=== PATIENT | male | born 1995 | race Caucasian/White ===

== ENCOUNTER 2018-01-07 05:35 | Day surgery (SDC) | payer OTHER ==
[~2018-01-07 05:35] MED LIST: CEFAZOLIN 2 GM/D5W RTU 2 GM/50 ML RTUPB IV PRN
[2018-01-07] MEDS ORDERED: CEFAZOLIN 2 GM/D5W RTU 2 GM/50 ML RTUPB IV ONE (05:40)
[2018-01-07 05:59] LABS: APPEARANCE,URINE CLEAR; BILIRUBIN,URINE NEGATIVE (NEGATIVE); COLOR,URINE YELLOW; GLUCOSE, URINE NEGATIVE (NEGATIVE); KETONES,URINE NEGATIVE (NEGATIVE); LEUKOCYTE ESTERASE,URINE NEGATIVE (NEGATIVE); NITRITE,URINE NEGATIVE (NEGATIVE); PROTEIN,URINE NEGATIVE (NEGATIVE); UROBILINOGEN,URINE NEGATIVE mg/dL (<2.0)
[2018-01-07 06:04] LABS: HEMATOCRIT 43.7 % (37.9-51.0); HEMOGLOBIN 15.3 g/dL (13.5-17.0); MEAN CORPUSCULAR HEMOGLOBIN 31.6 pg (27.0-33.4); MEAN CORPUSCULAR VOLUME 90 fl (80-97); PLATELET COUNT 237 10^3/uL (150-450); RED BLOOD COUNT 4.83 10^6/uL (4.35-5.55); RED CELL DISTRIBUTION WIDTH 13.7 % (11.5-14.0); WHITE BLOOD COUNT 5.9 10^3/uL (4.0-10.5)
[2018-01-07 06:16] LABS: ANION GAP 10 (5-19); BLOOD UREA NITROGEN 12 mg/dL (7-20); CALCIUM 9.2 mg/dL (8.4-10.2); CARBON DIOXIDE 24 mmol/L (22-30); CHLORIDE 106 mmol/L (98-107); GLUCOSE 86 mg/dL (75-110); POTASSIUM 4.8 mmol/L (3.6-5.0); SODIUM 139.6 mmol/L (137-145)
[2018-01-07] MEDS ORDERED: BUPIVACAINE HCL 0.5%-EPI 1:200000 INJ/PF 30 ML VIAL ONE (06:33)
[2018-01-07] MEDS ORDERED: FENTANYL CITRATE INJ/PF 100 MCG/2 ML AMPUL ONE (06:55)
[2018-01-07] MEDS ORDERED: MIDAZOLAM 2 MG/2 ML INJ ONE (06:55)
[2018-01-07] MEDS ORDERED: LIDOCAINE 2% INJ-PF (20 MG/ML) 10 ML AMPUL ONE (06:55)
[2018-01-07] MEDS ORDERED: PROPOFOL INJ 200 MG/20 ML VIAL IV ONE (06:56)
[2018-01-07] MEDS ORDERED: ACETAMINOPHEN 1,000 MG/100 ML RTUPB IV ONE (07:09)
[2018-01-07] MEDS ORDERED: PROMETHAZINE HCL INJ 25 MG/1 ML VIAL IV PRN ×2 (07:58)
[2018-01-07] MEDS ORDERED: MEPERIDINE HCL/PF INJ 25 MG/1 ML DISP.SYRIN IV PRN (07:58)
[2018-01-07] MEDS ORDERED: FENTANYL CITRATE INJ/PF 100 MCG/2 ML AMPUL IV PRN ×3 (07:58)
[2018-01-07] MEDS ORDERED: DIPHENHYDRAMINE HCL 50 MG/ML VIAL IV PRN (07:58)
[2018-01-07] MEDS ORDERED: MORPHINE SULFATE 10 MG/ML INJ IV PRN (07:58)
--- NOTE | 2018-01-07 08:47 | Operative Report ---
Operative Report DATE OF SURGERY: 01/07/18 PREOPERATIVE DIAGNOSIS: Exertional compartment syndrome left lower extremity POSTOPERATIVE DIAGNOSIS: Same OPERATION: Compartment release left lower extremity of the anterior and lateral compartments. SURGEON: LEILA BROWN ANESTHESIA: GA TISSUE REMOVED OR ALTERED: none COMPLICATIONS: None ESTIMATED BLOOD LOSS: 10mL INTRAOPERATIVE FINDINGS: as above PROCEDURE: Patient holding area received the preoperative antibiotics. The extremity was marked and the patient was brought to the operating room. After receiving general anesthetic thigh tourniquet was applied to the left lower extremity. Left lower extremity was prepped and draped in a normal sterile surgical fashion. Timeout was done identifying the left lower extremity as the correct site. Quarter percent Marcaine was injected in the anticipated incision. A longitudinal incision was done on the lateral aspect of the left lower extremity. Dissection was done to the fascial layer were able to identify the anterior and lateral compartments. A 15 blade was then used to excise longitudinal incisions on both the anterior and lateral compartments. With the Metzenbaum scissors I was able then to use the tips and then slide and released the fascial tissue both proximal and distal of both anterior and the lateral compartments. Place my finger make sure that there is no restrictive bands and was able to have complete release. Once I completed the release I proceeded to close the wound using #2 Vicryl to approximate subcutaneous fat and dermal layers and then used a 3-0 Monocryl to do a running subcuticular closure. Dermabond was applied followed by Steri-Strips and then 4 x 4 dressing. Soft roll was used to overwrap the dressing and Abdulaziz bandage was applied on top of a soft roll. Tourniquet was let down at 23 minutes. Drapes were removed and the patient was then awoken and the LMA was removed and the patient was taken to PACU in a stable condition.
[2018-01-07] MEDS ORDERED: OXYCODONE-ACETAMINOPHEN 5-325 MG TABLET PO PRN (08:56)
--- NOTE | 2018-01-07 08:57 | Discharge Summary ---
Discharge Summary (SDC) - Discharge Final Diagnosis: Compartment release of the anterior lateral compartments of the left lower extremity. Date of Surgery: 01/07/18 Discharge Date: 01/07/18 Condition: Good Treatment or Instructions: Keep the dressing dry clean and intact for 4 days. Then okay to remove and shower. Weight-bear as tolerated with crutches. When not ambulating recommend ice and elevation. Follow-up in 10-14 days unless he develops redness swelling and drainage. Prescriptions: Oxycodone HCl/Acetaminophen [Percocet 5-325 mg Tablet] 1 - 2 tab PO ASDIR PRN # 25 tablet PRN Reason: Referrals: ABIOLA MCALLISTER MD [Primary Care Provider] - Respiratory Treatments at Home: Deep Breathing/Coughing Discharge Activity: No Driving - While taking narcotics, Keep Legs Elevated, No Lifting/Push/Pulling, Slowly Increase Activity Home Care Assistance: None Needed Adaptive Devices on Discharge: Axillary Crutches Report the Following to Your Physician Immediately: Shortness of Breath, Vomiting, Increase in Pain, Fever over 101 Degrees, Unusual Bleeding, Redness, Swelling, Warmth, Numbness
[2018-01-07 10:20] VITALS: BP 115/53
[2018-01-07] MEDS ORDERED: KETOROLAC TROMETHAMINE 60 MG/2 ML SDV ONE (14:46)
[2018-01-07] MEDS ORDERED: ONDANSETRON HCL INJ/PF 4 MG/2 ML SDV ONE (14:46)
[2018-01-07] MEDS ORDERED: DEXAMETHASONE SOD PHOSPHATE INJ 4 MG/1 ML VIAL ONE (14:46)
== END 2018-01-07 10:27 | disposition home or self-care (01) ==
LOC: OROUT 05:35
PROVIDERS: ATTEND Orthopaedic Surgery
DX: T79.A22A Traumatic compartment syndrome of left lower extremity, initial encounter (principal); T88.9XXA Complication of surgical and medical care, unspecified, initial encounter; M79.605 Pain in left leg; F17.210 Nicotine dependence, cigarettes, uncomplicated
CPT/HCPCS: 36415; 85027; 80048; 81001; 27600; J2250; J3490 ×2; J1100; J1885; J3010; J2405; J2704; J0690; J0131; 1470